=== PATIENT | female | born 1990 | race Caucasian/White ===

== ENCOUNTER 2018-10-28 03:34 | Inpatient (IN) | payer OTHER ==
[2018-10-28] MEDS ORDERED: CARBOPROST 250 MCG INJ IM ×2 (04:30→18:30)
[2018-10-28] MEDS ORDERED: BUTORPHANOL 1 MG INJ IV (04:30)
[2018-10-28] MEDS ORDERED: OXYTOCIN 30 UNITS/LR 500 ML IV ×2 (04:30→18:30)
[2018-10-28] MEDS ORDERED: METHYLERGONOVINE 0.2 MG INJ IM (04:30)
[2018-10-28] MEDS ORDERED: MISOPROSTOL 200 MCG TAB PR ×2 (04:30→18:30)
[2018-10-28] MEDS ORDERED: LIDOCAINE 1% (MPF) 30 ML INJ INJ (04:30)
[2018-10-28] MEDS ORDERED: BUTORPHANOL 2 MG INJ IV (04:30)
[2018-10-28] MEDS ORDERED: IBUPROFEN 600 MG TAB PO (04:30)
[2018-10-28 04:49] LABS: ADD MAN DIFF? NO
[2018-10-28 04:54] LABS: WHITE BLOOD COUNT 6.5 10^3/ul (4.8-10.8)
[2018-10-28 04:54] LABS: BASOPHILS % 0.3 % (0.0-2.0); EOSINOPHILS % 0.3 % (0.0-7.0); HEMATOCRIT 32.1 % (37.0-47.0); HEMOGLOBIN 10.4 g/dl (12.0-16.0); LYMPHOCYTES # 1.7 10^3/ul (0.8-2.9); LYMPHOCYTES % 25.3 % (15.0-51.0); MEAN CORPUSCULAR HEMOGLOBIN 25.6 pg (29.0-33.0); MEAN CORPUSCULAR HGB CONC 32.4 g/dl (32.0-37.0); MEAN CORPUSCULAR VOLUME 78.9 fl (82.0-101.0); MEAN PLATELET VOLUME 12.9 fl (7.4-10.4); MONOCYTE # 0.5 10^3/ul (0.3-0.9); MONOCYTES % 7.8 % (0.0-11.0); NEUTROPHIL # 4.3 10^3/ul (1.6-7.5); PLATELET COUNT 196 10^3/UL (140-415); RED BLOOD COUNT 4.07 10^6/ul (4.20-5.40); RED CELL DISTRIBUTION WIDTH 13.2 % (11.5-14.5)
[2018-10-28] MEDS: LACTATED RINGER'S 1,000 ML IV ×5 (04:55→17:10)
[2018-10-28 05:21] LABS: INR 0.89; PROTIME 12.2 Sec (11.9-14.9)
[2018-10-28 05:22] LABS: PARTIAL THROMBOPLASTIN TIME 27.8 Sec (23.0-35.0)
[2018-10-28 05:56] LABS: HEPATITIS B SURFACE ANTIGEN NEGATIVE (NEGATIVE)
[2018-10-28] MEDS: OXYTOCIN 30 UNITS/LR 500 ML IV ×4 (11:11→22:20)
[2018-10-28] MEDS ORDERED: FENTAnyl 2MCG/ML-ROPIV 0.2% 100 ML (12:04)
[2018-10-28] MEDS ORDERED: NALOXONE (0.4 MG/ML) INJ IV (13:00)
[2018-10-28] MEDS ORDERED: FENTAnyl 2MCG/ML-ROPIV 0.2% 100 ML BAG EPI (13:00)
[2018-10-28] MEDS ORDERED: DIPHENHYDRAMINE 50 MG INJ IV ×2 (13:00→18:30)
[2018-10-28] MEDS ORDERED: NALBUPHINE HCL (10 MG/1 ML) INJ IV (13:00)
[2018-10-28] MEDS ORDERED: ONDANSETRON 4 MG INJ IV ×2 (13:00→18:30)
[2018-10-28] MEDS ORDERED: MINERAL OIL LIGHT 10 ML VIAL (15:08)
[2018-10-28] MEDS: LACTATED RINGER'S 1,000 ML IV* (18:06)
[2018-10-28 18:16] LABS: AADO2 Cord Arterial 63.5 mmHg; Arterial Cord Blood pCO2 56.8 mmHG (25-50); CBA Base Excess -6.8 mmol/L; CBA COHb 0.3 %; CBA Oxygen Sat 32.4 mmHG; CBA Total Hemglobin 15.9 g/dl; Cord Blood Arterial pO2 18.2 mmHG (15.0-45.0); Fraction OxyHgb Cord Arterial 31.7 %; MODE ROOM AIR; MetHgb Cord Arterial 1.8 %; Sample Type CBA; Site CORD
[2018-10-28 18:19] LABS: CBV Base Excess -8.3 mmol/L; CBV COHb 0.7 %; CBV Oxygen Sat 82.5 mmHG; CBV Total Hemglobin 16.1 g/dl; Cord Blood Venous pO2 38.9 mmHG (15.0-45.0); Fraction OxyHgb Cord Venous 81.3 %; MODE ROOM AIR; MetHgb Cord Venous 0.8 %; Sample Type CBV; Site CORD
[2018-10-28] MEDS: MINERAL OIL LIGHT 10 ML VIAL TOP (18:20)
[2018-10-28] MEDS ORDERED: SENNA/DOCUSATE NA (8.6MG/50MG) TAB PO (18:30)
[2018-10-28] MEDS ORDERED: DIPHENHYDRAMINE 25 MG CAP PO (18:30)
[2018-10-28] MEDS ORDERED: HYDROCODONE/APAP (5/325) TAB PO ×2 (18:30)
[2018-10-28] MEDS ORDERED: DIBUCAINE 1% 30 GM OINT TOP (18:30)
[2018-10-28] MEDS ORDERED: ONDANSETRON 4 MG TAB PO (18:30)
[2018-10-28] MEDS ORDERED: NA PHOSPHATE/BIPHOS 133 ML ENEMA PR (18:30)
[2018-10-28] MEDS ORDERED: MAGNESIUM HYDROXIDE 30ML CUP PO (18:30)
[2018-10-28 19:50] LABS: RAPID PLASMA REAGIN NONREACTIVE (NR)
[2018-10-28] MEDS: LANOLIN HPA 1 PKT TOP (22:20)
[2018-10-28] MEDS: BENZOCAINE 20% 56 ML SPRAY TOP (22:20)
[2018-10-28] MEDS: WITCH HAZEL/GLYCERIN PAD PR (22:20)
[2018-10-28] MEDS: SENNA/DOCUSATE NA (8.6MG/50MG) TAB PO (22:21)
[2018-10-29] MEDS: IBUPROFEN 600 MG TAB PO ×5 (00:32→23:31)
[2018-10-29] MEDS: LACTATED RINGER'S 1,000 ML IV* ×2 (02:06→10:06)
[2018-10-29 06:34] LABS: ADD MAN DIFF? NO
[2018-10-29 06:47] LABS: BASOPHILS % 0.2 % (0.0-2.0); HEMATOCRIT 27.3 % (37.0-47.0); LYMPHOCYTES # 1.4 10^3/ul (0.8-2.9); LYMPHOCYTES % 12.6 % (15.0-51.0); MEAN CORPUSCULAR HEMOGLOBIN 25.7 pg (29.0-33.0); MEAN PLATELET VOLUME 12.7 fl (7.4-10.4); MONOCYTE # 0.6 10^3/ul (0.3-0.9); MONOCYTES % 5.8 % (0.0-11.0); NEUTROPHILS % 81.1 % (39.0-77.0); PLATELET COUNT 171 10^3/UL (140-415); RED CELL DISTRIBUTION WIDTH 13.5 % (11.5-14.5)
[2018-10-29] MEDS: SENNA/DOCUSATE NA (8.6MG/50MG) TAB PO ×2 (08:58→22:04)
[2018-10-29] MEDS: LACTATED RINGER'S 1,000 ML IV (11:57)
[2018-10-30] MEDS: IBUPROFEN 600 MG TAB PO ×2 (06:23→12:25)
[2018-10-30] MEDS ORDERED: VARICELLA VACCINE LIVE/PF 1,350 UNIT/0.5 ML ML SC* (09:00)
[2018-10-30] MEDS ORDERED: MEASLES,MUMPS,RUBELLA VACCINE INJ SC* (09:00)
[2018-10-30] MEDS ORDERED: DIPHTH/TET/ACEL PERTUSS (ADULT) 0.5 ML VIAL IM* (09:00)
[2018-10-30] MEDS: SENNA/DOCUSATE NA (8.6MG/50MG) TAB PO (09:28)
[2018-10-30] MEDS: TAMSULOSIN (SR) 0.4 MG CAP PO (13:37)
== END 2018-10-30 17:45 | disposition home or self-care (01) | DRG 807 ==
LOC: OBT 03:34 → L-D 03:36 → OBT 04:11 → L-D 04:11 → PP1 19:54
PROVIDERS: Specialist
PROC: 10E0XZZ Delivery of Products of Conception, External Approach (ICD-10-PCS; principal; 2018-10-28)
PROC: 10907ZC Drainage of Amniotic Fluid, Therapeutic from Products of Conception, Via Natural or Artificial Opening (ICD-10-PCS; 2018-10-28)
PROC: 0HQ9XZZ Repair Perineum Skin, External Approach (ICD-10-PCS; 2018-10-28)
DX: O76 Abnormality in fetal heart rate and rhythm complicating labor and delivery (principal); O70.0 First degree perineal laceration during delivery; Z37.0 Single live birth; Z3A.40 40 weeks gestation of pregnancy
CPT/HCPCS: 36415; 36600; 62319; 76815; 76818; 82803; 85025; 85610; 85730; 86592; 86850; 86900; 86901; 87340; 90716; 99464